=== PATIENT | female | born 1965 | race Caucasian/White ===

== ENCOUNTER 2019-08-07 09:44 | Day surgery (SDC) | payer MEDICAID ==
[~2019-08-07 09:44] MED LIST: Lidocaine 1% 4 ML ONE; Lidocaine 1%/Sod Bicarbonate in NS 8.4% 1 ML Syringe IDERM PRN; Midazolam 1 MG/ML 2 ML SDV ONE; Propofol 200 MG/20 ML SDV ONE; Sodium Chloride 0.9% 10 ML Syringe FLUSH PRN; fentaNYL 100 MCG/2 ML SDV ONE
[2019-08-07] MEDS: Lactated Ringers 1,000 ML IV SCH ×2 (10:10→11:54)
--- NOTE | 2019-08-07 10:21 | PCM.PREANE ---
Preanesthetic Assessment - Anesthesia/Transfusion/Family Hx Anesthesia History: Prior Anesthesia Without Reaction Transfusion History: No Prior Transfusion(s) Intubation History: Unknown - Review of Systems General: No Symptoms Pulmonary: No Symptoms Cardiovascular: No Symptoms Gastrointestinal: No Symptoms Neurological: No Symptoms Other: Reports: None - Physical Assessment NPO Status Date: 08/06/19 NPO Status Time: 23:00 Vital Signs: Last Vital Signs Temp 98.5 F 08/07/19 09:55 Pulse 96 08/07/19 09:55 Resp 16 08/07/19 09:55 BP 120/70 08/07/19 09:55 Pulse Ox 99 08/07/19 09:55 Height: 1.6 m Weight: 77.564 kg ASA Class: 1 Mental Status: Alert & Oriented x3 Airway Class: Mallampati = 1 Dentition: Reports: Normal Dentition Thyro-Mental Finger Breadths: 3 Mouth Opening Finger Breadths: 3 ROM/Head Extension: Full Lungs: Clear to Auscultation, Normal Respiratory Effort - Allergies Allergies/Adverse Reactions: Allergies Allergy/AdvReac Type Severity Reaction Status Date / Time clindamycin Allergy Nausea and Verified 08/06/19 13:21 Vomiting - Acknowledgements Anesthesia Type Planned: General Anesthesia Pt an Appropriate Candidate for the Planned Anesthesia: Yes Alternatives and Risks of Anesthesia Discussed w Pt/Guardian: Yes Pt/Guardian Understands and Agrees with Anesthesia Plan: Yes PreAnesthesia Questionnaire HEENT History: Reports: Allergic Rhinitis, Impaired Vision Other Gastrointestinal History: elevated LFTs Genitourinary History: Reports: STD, Other (See Below) Other Genitourinary History: cystocele, irregular menses, ovulatory pain, menorrhagia, HPV, fibroid, SIGHTER History: Reports: None Neurological History: Reports: Migraines Psychiatric History: Reports: Depression Hematologic History: Reports: None Immunologic History: Reports: None Oncologic (Cancer) History: Reports: None Dermatologic History: Reports: Eczema - Past Surgical History Head Surgeries/Procedures: Reports: None HEENT Surgical History: Reports: Cataract Surgery, Eye Surgery Cardiovascular Surgical History: Reports: None Respiratory Surgical History: Reports: None Female Surgical History: Reports: Cervical Cryotherapy Male Surgical History: Reports: None Endocrine Surgical History: Reports: None Neurological Surgical History: Reports: None Musculoskeletal Surgical History: Reports: None Oncologic Surgical History: Reports: None - SUBSTANCE USE Smoking Status *Q: Never Smoker Recreational Drug Use History: No - HOME MEDS Home Medications: Home Meds Cholecalciferol (Vitamin D3) [Vitamin D3] 1,000 unit PO DAILY 08/06/19 [History] Fluticasone Propionate [Flonase] 1 dose NASBOTH DAILY PRN 08/06/19 [History] Ibuprofen [Advil] 400 mg PO 6XDAY PRN 08/06/19 [History] Lutein 10 mg PO DAILY 08/06/19 [History] Multivit/Iron/FA/K/Herb No.244 [Alive [employer] Mv Tablet] 1 tab PO DAILY 08/06/19 [History] PEG 400/Hypromellose/Glycerin [Eye Drop Tears] 1 dose EYEBOTH Q2H PRN 08/06/19 [ History] - CURRENT (IN HOUSE) MEDS Current Meds: Current Medications Lactated Ringer's (Ringers, Lactated) 1,000 mls @ 125 mls/hr IV ASDIRECTED JOHN Stop: 08/07/19 23:00 Lidocaine/Sodium Bicarbonate (Buffered Lidocaine 1% In Ns 8.4%) 0.25 ml IDERM ONETIME PRN PRN Reason: Prior to IV Start Stop: 08/07/19 18:00 Sodium Chloride (Saline Flush) 10 ml FLUSH ASDIRECTED PRN PRN Reason: Keep Vein Open Stop: 08/07/19 18:00 Discontinued Medications Fentanyl (Sublimaze) Confirm Administered Dose 200 mcg .ROUTE .STK-MED ONE Stop: 08/07/19 08:47 Lidocaine HCl (Xylocaine-Mpf 1%) Confirm Administered Dose 4 mls @ as directed .ROUTE .STK-MED ONE Stop: 08/07/19 09:19 Midazolam HCl (Versed 1 Mg/Ml) Confirm Administered Dose 2 mg .ROUTE .STK-MED ONE Stop: 08/07/19 08:47 Propofol (Diprivan 20 Ml) Confirm Administered Dose 200 mg .ROUTE .STK-MED ONE Stop: 08/07/19 08:47
[2019-08-07] MEDS ORDERED: Ondansetron 4 MG/2 ML SDV ONE (10:32)
[2019-08-07] MEDS ORDERED: fentaNYL 100 MCG/2 ML SDV IVPUSH PRN (10:59)
[2019-08-07] MEDS ORDERED: HYDROmorphone 0.5 MG/0.5 ML Syringe IVPUSH PRN (10:59)
[2019-08-07] MEDS ORDERED: Ketorolac 30 MG/ML SDV ONE (11:07)
--- NOTE | 2019-08-07 11:47 | PCM.OPNOTE ---
- General Post-Op/Procedure Note Date of Surgery/Procedure: 08/07/19 Operative Procedure(s): Hysteroscopy with dilation and curettage Findings: Grossly normal-appearing uterus with ostia visualized bilaterally. Mildly thickened endometrial lining on the anterior surface of the uterus. Grossly normal-appearing lining on the posterior uterine surface. Pre Op Diagnosis: Postmenopausal bleeding with nondiagnostic endometrial biopsy that was done in the clinic Post-Op Diagnosis: Same Anesthesia Technique: General LMA Primary Surgeon: Denny Suarez Anesthesia Provider: Carlos Alberto Martinez Pathology: Endometrial curettings Fluid Replacement, Intraop: 1,000 Output, Urine Amount: 0 (Voided prior to procedure) EBL in mLs: 15 Complications: None Condition: Good Free Text/Narrative:: Procedure in Detail: Patient was seen in the preop area and counseled on risks, benefits and alternatives of the procedure and consents were signed prior to going back to the OR. She was taken back to OR #2 and given general anesthesia with laryngeal mask airway that was placed without difficulty. She was placed in dorsal lithotomy position using Yellofin stirrups. She was prepped and draped in a normal sterile fashion. A sterile speculum was placed in the vagina and the cervix was visualized. The anterior lip of the cervix was grasped with an Allis clamp. The cervix was serially dilated to a 16 Sinhala nima dilator. A 5 mm hysteroscope was inserted into the uterine cavity and advanced to the uterine fundus. The ostia were noted to be present bilaterally. The uterine cavity was noted to be grossly normal in appearance with slightly thickened anterior endometrial lining. The hysteroscope was removed and a sharp curette was used to circumferentially curette the entirety of the uterine cavity where good cri was present in all directions. The curettings were sent for pathology. The procedure was complete at this time and the Allis clamp was removed from the cervix and good hemostasis was noted from the cervix. All instruments were removed from the vagina. All needle and sponge counts were correct x 2. The patient was awoken and taken back to the recovery room in stable condition. The patient will be discharged home when she is ambulating, tolerating PO, pain is well controlled with PO medications and she is voiding normally. She will follow up with Dr. suarez in the clinic within the next 1 to 2 weeks. She was given strict precautions to call the medical office or go to the Emergency Department if she is having severe vaginal bleeding of more than 1 pad per hour for three hours, uncontrollable pain, nausea, vomiting, or if she is having a fever greater than 100.4 F. Review of images: IMG 001: Left tubal ostia difficult to visualize with fibrous tissue covering the ostia. IMG 002: Right tubal ostia present IMG 003: Anterior endometrial lining with slightly thickened lining present
--- NOTE | 2019-08-07 12:24 | PCM.POSTAN ---
POST ANESTHESIA ASSESSMENT - MENTAL STATUS Mental Status: Somnolent - VITAL SIGNS Vital Signs: Last Vital Signs Temp 97.4 F 08/07/19 12:00 Pulse 65 08/07/19 12:00 Resp 15 08/07/19 12:00 BP 108/60 08/07/19 12:00 Pulse Ox 100 08/07/19 12:00 - RESPIRATORY Respiratory Status: Respiratory Rate WNL, Airway Patent, O2 Saturation Stable, Supplemental Oxygen - CARDIOVASCULAR CV Status: Pulse Rate WNL, Blood Pressure Stable - GASTROINTESTINAL GI Status: No Symptoms - PAIN Pain Score: 0 - POST OP HYDRATION Hydration Status: Adequate & Stable
--- NOTE | 2019-08-07 12:26 | PCM48HPAN ---
Post Anesthesia Note - EVALUATION WITHIN 48HRS OF ANESTHETIC Vital Signs in Normal Range: Yes Patient Participated in Evaluation: Yes Respiratory Function Stable: Yes Airway Patent: Yes Cardiovascular Function Stable: Yes Hydration Status Stable: Yes Pain Control Satisfactory: Yes Nausea and Vomiting Control Satisfactory: Yes Mental Status Recovered: Yes Vital Signs: Last Vital Signs Temp 97.4 F 08/07/19 12:00 Pulse 65 08/07/19 12:00 Resp 15 08/07/19 12:00 BP 108/60 08/07/19 12:00 Pulse Ox 100 08/07/19 12:00
== END 2019-08-07 15:05 | disposition home or self-care (01) ==
LOC: JD.SDS 09:44
PROVIDERS: ATTEND Obstetrics & Gynecology
DX: N95.0 Postmenopausal bleeding (principal); F32.9 Major depressive disorder, single episode, unspecified; L30.9 Dermatitis, unspecified; N81.10 Cystocele, unspecified; G43.909 Migraine, unspecified, not intractable, without status migrainosus; E66.9 Obesity, unspecified; Z68.32 Body mass index [BMI] 32.0-32.9, adult; Z88.1 Allergy status to other antibiotic agents; Z86.018 Personal history of other benign neoplasm; Z86.19 Personal history of other infectious and parasitic diseases
CPT/HCPCS: 58558; 81001; J1885; J2001; J2250; J2405; J2704; J3010; J7120; 00952

== ENCOUNTER 2022-01-05 11:06 | Emergency (ER) | payer MEDICAID ==
[2022-01-05] MEDS ORDERED: Lactated Ringers 1,000 ML IV ONE (12:09)
[2022-01-05] MEDS ORDERED: Meclizine 12.5 MG Tab PO ONE (12:09)
[2022-01-05] MEDS ORDERED: Metoclopramide 10 MG/2 ML SDV IVPUSH ONE (12:09)
[2022-01-05] MEDS ORDERED: diphenhydrAMINE 50 MG/ML SDV IVPUSH ONE (12:09)
== END 2022-01-05 15:40 | disposition home or self-care (01) ==
LOC: JD.ED 11:06
DX: R42 Dizziness and giddiness (principal); Z88.1 Allergy status to other antibiotic agents
CPT/HCPCS: 36415; 70450; 80053; 83735; 85025; 85610; 96361; 96374; 96375; 99284; A9270; J1200; J2765; J7120